=== PATIENT | female | born 1975 | race Caucasian/White ===

== ENCOUNTER → 2017-04-17 | Outpatient (CLI) | payer OTHER | LOC: FIMAGING 08:30 | PROVIDERS: ATTEND Internal Medicine | DX: Z12.31 Encounter for screening mammogram for malignant neoplasm of breast (principal); Z80.3 Family history of malignant neoplasm of breast | CPT/HCPCS: G0202 ==

== ENCOUNTER → 2018-04-20 | Outpatient (CLI) | payer OTHER | LOC: FIMAGING 08:13 | PROVIDERS: ATTEND Internal Medicine | DX: Z12.31 Encounter for screening mammogram for malignant neoplasm of breast (principal); Z80.3 Family history of malignant neoplasm of breast ==

== ENCOUNTER → 2018-10-06 | Outpatient (CLI) | payer OTHER | LOC: BMCIMAGING 10:26 ==